=== PATIENT | female | born 2005 | race Caucasian/White ===

== ENCOUNTER 2024-12-12 19:54 | Emergency (ER) | payer BC, SELFPAY ==
[2024-12-12 20:10] VITALS: BP 136/82
[2024-12-12 21:40] VITALS: BP 124/80
--- NOTE | 2024-12-12 22:10 | ED.GENMED ---
History of Present Illness
General
Chief Complaint: Throat Problem
Time Seen by Provider: 12/12/24 21:05
History of Present Illness
History of Present Illness:
19-year-old female presents for evaluation of sore throat. Ongoing for the past week but worse today. She also notes postnasal drip and mild cough particularly in the morning. Admitted states she has a history of allergies. Has been using
Tylenol without relief
Review of Systems
Review of Systems
Allergies reviewed?: Yes
All Other Systems: ROS reviewed and negative except as documented in HPI and ROS
Phy Exam
Physical Exam
Physical Exam:
GEN: Well appearing, NAD, WDWN
HEENT: Oral mucosa moist, no scleral icterus, no tonsillar hypertrophy or exudates, evidence for postnasal discharge in the oropharynx, no cervical adenopathy
Cardiac: Regular rate
Lung: No respiratory distress, no tachypnea
MSK: No gross deformity or injuries
Skin: Good color, no pallor or jaundice, no rashes
Neuro: AO x3, moves all extremities freely
Psych: Calm, cooperative
Course
Orders/Labs/Results
Orders:
Orders
12/12/24 20:59
Rapid Strep Group A Urgent
PRESTON Source: Throat/Pharynx
Specimen Description:
Date Specimen was Collected: 12/12/24
Time Specimen was Collected: 20:56
Throat Culture [Throat Culture, Comprehensive] Urgent
PRESTON Source: Throat/Pharynx
Specimen Description:
Date Specimen was Collected: 12/12/24
Time Specimen was Collected: 20:56
Vital Signs
Initial and Last Documented VS:
Initial Vital Signs
Temp Pulse Resp BP Pulse Ox
98.1 F 83 18 136/82 98
12/12/24 20:10 12/12/24 20:10 12/12/24 20:10 12/12/24 20:10 12/12/24 20:10
Last Documented Vital Signs
Temp Pulse Resp BP Pulse Ox
98.1 F 84 16 124/80 99
12/12/24 20:10 12/12/24 21:40 12/12/24 21:40 12/12/24 21:40 12/12/24 21:40
MDM/Problems Addressed
MDM/Problems Addressed:
Negative rapid strep, exam consistent with viral etiology, most likely postnasal drainage, recommend treatment for seasonal allergic rhinitis
*Critical Care Note
Total Time (30-74mins, 75-104mins- exclusive of procedures): Not Applicable
ED Attending Note
-
Portions of this chart may have been created with voice recognition software.� Occasional wrong word or��sound alike� substitutions may have occurred due to the inherent limitations of voice recognition software.
Discharge Plan
Departure
Patient Disposition: Home (Routine Discharge)
Date of Disposition: 12/12/24
Time of Disposition: 22:10
Patient with high blood pressure during this ER visit?: No
Discharge Problem:
Pharyngitis
Instructions: Sore Throat, Adult (DC)
Referrals:
NONE,* [Family Provider] -
Activity Restrictions/Additional Instructions:
Try OTC allergy medications
Interventions
Interventions:
*Risk Screen - Suicide Last Done: 12/12/24 20:14
*General Assessment Last Done: 12/12/24 20:14
*Neglect/Abuse Screening Last Done: 12/12/24 20:14
*Nursing Disposition Last Done: 12/12/24 21:50
ED-EENT Assessment Last Done: 12/12/24 21:40
ED- Pulmonary Assessment Last Done: 12/12/24 21:40
Discharge Date and Time
Discharge Date/Time: 12/12/24 22:18
Print Language: GUYANESE
== END 2024-12-12 22:18 | disposition home or self-care (01) ==
LOC: EMR 19:54
PROVIDERS: EMERGENCY PHYSICIAN Emergency Medicine
DX: J02.9 Acute pharyngitis, unspecified (principal); R05.9 Cough, unspecified
CPT/HCPCS: 99283; 87070; 87880